=== PATIENT | male | born 1985 | race African-American/Black ===

== ENCOUNTER → 2017-01-26 | Outpatient (CLI) | payer OTHER | LOC: COL.RAD 15:15 | DX: M54.5 Low back pain (principal) ==

== ENCOUNTER 2021-05-22 16:47 | Emergency (ER) | payer SELFPAY ==
[~2021-05-22] VITALS: Ht 182.9 cm; Wt 106.4 kg
[2021-05-22 17:45] VITALS: TEMP 98.8
[2021-05-22 20:10] VITALS: BP 144/78; PULSE 64
== END 2021-05-22 20:10 | disposition home or self-care (01) ==
LOC: COL.ER 16:47
DX: N34.2 Other urethritis (principal)
CPT/HCPCS: J0696